=== PATIENT | female | born 1995 | race African-American/Black ===

== ENCOUNTER 2017-04-18 04:06 | Emergency (ER) | payer OTHER ==
[~2017-04-18] VITALS: Ht 167.6 cm; Wt 70.0 kg
[~2017-04-18 04:06] MED LIST: HYDR-3533 PO; IBUP-232 PO; PENVK500 PO; Z.0.BCPILL PO
[2017-04-18 04:08] VITALS: BP 141/78; PULSE 90; RESP 16; TEMP 98.3; O2SAT 100
[2017-04-18] MEDS ORDERED: SODIUM CHLORIDE 0.9% FLUSH 10 ML FLUSH IV FLUSH PRN (04:30)
--- NOTE | 2017-04-18 04:32 | PD ---
HPI Chief Complaint: Abdominal Pain Time Seen by Provider: 04:28 Travel History International Travel<30 days: No Contact w/Intl Traveler<30days: No Traveled to known affect area: No History of Present Illness HPI 21 year-old female presents to the emergency department for complaint of 2 weeks of right-sided abdominal pain. Patient is unable to identify exacerbating or alleviating factors. Patient's had nausea without vomiting. Patient denies fever or chills. Patient's had decreased appetite. Patient denies any injury or fall. No chest pain or shortness of breath. No recent respiratory illness or fever. Patient's had some intermittent dysuria and some intermittent diarrhea. No vaginal discharge or vaginal bleeding. Patient denies . Patient is taking control pills. Last period was 2 weeks ago and normal for her. Patient has tried ibuprofen without significant relief of symptoms. Patient is otherwise unable to identify exacerbating or alleviating factors. No prior surgeries. PFSH Past Medical History Narrative Medical control pills no tobacco use nursing notes reviewed Diminished Hearing: No Tetanus Vaccination: Unknown ?: Not : 0 Past Surgical History Surgical History: No Previous Surgery Social History Alcohol Use: No Tobacco Use: No Substance Use: No Allergies-Medications (Allergen,Severity, Reaction): Coded Allergies: No Known Allergies (Unverified , 05/27/16) Reported Meds & Prescriptions Reported Meds & Active Scripts Active Lortab 5 mg/325 mg (Hydrocodone/Acetaminophen 5 mg/325 mg) 1 Tab 1 Tab PO Q6H PRN Motrin (Ibuprofen) 600 Mg Tab 600 Mg PO Q6HR PRN Penicillin V Potassium 500 Mg Tab 500 Mg PO QID 7 Days Reported Control Pills (Miscellaneous Medication) Tab 1 Tab PO DAILY Review of Systems Except as stated in HPI: all other systems reviewed are Neg Physical Exam Narrative GENERAL: Well-developed well-nourished female in no acute distress no respiratory distress SKIN: Warm and dry. HEAD: Normocephalic. EYES: No scleral icterus. No injection or drainage. NECK: Supple, trachea midline. No JVD or lymphadenopathy. CARDIOVASCULAR: Regular rate and rhythm without murmurs, gallops, or rubs. RESPIRATORY: Breath sounds equal bilaterally. No accessory muscle use. GASTROINTESTINAL: Abdomen soft, mild suprapubic tenderness no guarding or rebound, nondistended. MUSCULOSKELETAL: No cyanosis, or edema. BACK: Nontender without obvious deformity. No CVA tenderness. Data Data Last Documented VS Vital Signs Date Time Temp Pulse Resp B/P (MAP) Pulse Ox O2 Delivery O2 Flow Rate FiO2 04/18/17 04:08 98.3 90 16 141/78 (99) 100 Room Air Orders Orders Complete Blood Count With Diff (04/18/17 04:28) Comprehensive Metabolic Panel (04/18/17 04:28) Lipase (04/18/17 04:28) Urinalysis - C+S If Indicated (04/18/17 04:28) Iv Access Insert/Monitor (04/18/17 04:28) Ecg Monitoring (04/18/17 04:28) Oximetry (04/18/17 04:28) Sodium Chloride 0.9% Flush (Ns Flush) (04/18/17 04:30) Ed Urine Pregnancytest Poc (04/18/17 04:28) Ketorolac Inj (Toradol Inj) (04/18/17 05:45) Ct Abd/Pel W/O Iv Contrast (04/18/17 ) Labs Laboratory Tests Test 04/18/17 04:45 White Blood Count 8.1 TH/MM3 Red Blood Count 4.50 MIL/MM3 Hemoglobin 12.9 GM/DL Hematocrit 39.3 % Mean Corpuscular Volume 87.4 FL Mean Corpuscular Hemoglobin 28.7 PG Mean Corpuscular Hemoglobin Concent 32.8 % Red Cell Distribution Width 14.3 % Platelet Count 283 TH/MM3 Mean Platelet Volume 7.8 FL Neutrophils (%) (Auto) 56.2 % Lymphocytes (%) (Auto) 36.5 % Monocytes (%) (Auto) 4.9 % Eosinophils (%) (Auto) 1.7 % Basophils (%) (Auto) 0.7 % Neutrophils # (Auto) 4.6 TH/MM3 Lymphocytes # (Auto) 3.0 TH/MM3 Monocytes # (Auto) 0.4 TH/MM3 Eosinophils # (Auto) 0.1 TH/MM3 Basophils # (Auto) 0.1 TH/MM3 CBC Comment DIFF FINAL Differential Comment Urine Color YELLOW Urine Turbidity CLEAR Urine pH 6.0 Urine Specific [place] 1.020 Urine Protein NEG mg/dL Urine Glucose (UA) NEG mg/dL Urine Ketones NEG mg/dL Urine Occult Blood NEG Urine Nitrite NEG Urine Bilirubin NEG Urine Urobilinogen LESS THAN 2.0 MG/DL Urine Leukocyte Esterase NEG Urine RBC LESS THAN 1 /hpf Urine WBC LESS THAN 1 /hpf Urine Mucus FEW /lpf Microscopic Urinalysis Comment CULT NOT INDICATED Blood Urea Nitrogen 11 MG/DL Creatinine 0.81 MG/DL Random Glucose 78 MG/DL Total Protein 7.9 GM/DL Albumin 3.3 GM/DL Calcium Level 9.0 MG/DL Alkaline Phosphatase 74 U/L Aspartate Amino Transf (AST/SGOT) 14 U/L Alanine Aminotransferase (ALT/SGPT) 16 U/L Total Bilirubin 0.1 MG/DL Sodium Level 137 MEQ/L Potassium Level 3.9 MEQ/L Chloride Level 106 MEQ/L Carbon Dioxide Level 24.4 MEQ/L Anion Gap 7 MEQ/L Estimat Glomerular Filtration Rate 110 ML/MIN Lipase 123 U/L MDM Medical Decision Making Medical Screen Exam Complete: Yes Emergency Medical Condition: Yes Medical Record Reviewed: Yes Interpretation(s) cbc grossly values are within normal range [id number] hCG negative Urinalysis within normal limits Metabolic panel: Values in normal range CBC & BMP Diagram 04/18/17 04:45 Total Protein 7.9, Albumin 3.3 L, Calcium Level 9.0, Alkaline Phosphatase 74, Aspartate Amino Transf (AST/SGOT) 14 L, Alanine Aminotransferase (ALT/SGPT) 16, Total Bilirubin 0.1 L Vital Signs Date Time Temp Pulse Resp B/P (MAP) Pulse Ox O2 Delivery O2 Flow Rate FiO2 04/18/17 04:08 98.3 90 16 141/78 (99) 100 Room Air Last Impressions Abdomen/Pelvis CT 04/18/17 0000 Signed Impressions: Service Date/Time: March 05:51 - CONCLUSION: 1. No acute findings. Small follicular cysts in the ovaries. Specifically no renal calculi or obstructive uropathy. Lance Burns MD Differential Diagnosis Abdominal pain, gastritis, pancreatitis, biliary colic, cholecystitis, appendicitis, ovarian cyst pain, , UTI, renal colic Narrative Course IV access obtained specimens collected and sent for resulting [id number] hCG test ordered Diagnosis Primary Impression: Abdominal pain Additional Impressions: Mittelschmerz phenomenon Ovarian follicular cyst Referrals: Enforcement Safety Officer call for appointment Primary Care Physician as needed Patient Instructions: General Instructions Additional Instructions: Increase fluid hydration Follow-up with primary care provider/ap operator Take ibuprofen 600 mg as often as every 6 hours as needed for pain associated with inflammation or may use this for fever 100.4F or greater Take acetaminophen/Tylenol as often as every 4-6 hours as needed for fever 100.4 F or greater or for minor pain Return to the emergency department for any concerns or change in condition Disposition: 01 DISCHARGE HOME Condition: Stable Kandice Ariza MD Apr 18, 2017 04:32
[2017-04-18 04:52] LABS: AUTOMATED NEUTROPHIL # 4.6 TH/MM3 (1.8-7.7); BASOPHIL # 0.1 TH/MM3 (0-0.2); BASOPHIL % 0.7 % (0.0-2.0); EOSINOPHIL # 0.1 TH/MM3 (0-0.4); EOSINOPHIL % 1.7 % (0.0-4.0); HEMATOCRIT 39.3 % (35.0-46.0); HEMO FLAGS DIFF FINAL; LYMPH % 36.5 % (9.0-44.0); MEAN CELL VOLUME 87.4 FL (80.0-100.0); MEAN CORPUSCULAR HEMOGLOBIN 28.7 PG (27.0-34.0); MEAN CORPUSCULAR HGB CONC 32.8 % (32.0-36.0); MONO % 4.9 % (0.0-8.0); NEUT % 56.2 % (16.0-70.0); PLATELET COUNT 283 TH/MM3 (150-450); RED CELL DISTRIBUTION WIDTH 14.3 % (11.6-17.2); WHITE BLOOD COUNT 8.1 TH/MM3 (4.0-11.0)
[2017-04-18 05:02] LABS: BLOOD, URINE NEG (NEG); COMMENT (UR) CULT NOT INDICATED; CULTURE IF INDICATED CULT NOT INDICATED; GLUCOSE,URINE NEG (NEG); KETONE, URINE NEG (NEG); MUCUS URINE FEW /lpf (OCC); NITRITE,URINE NEG (NEG); URINE COLOR YELLOW (YELLW/STRAW)
[2017-04-18 05:20] LABS: ANION GAP 7 MEQ/L (5-15); AST (GOT) 14 U/L (16-38); BICARBONATE 24.4 MEQ/L (21.0-32.0); BLOOD UREA NITROGEN 11 MG/DL (7-18); CHLORIDE 106 MEQ/L (98-107); GLOMERULAR FILTRATION RATE 110 ML/MIN (>89); POTASSIUM 3.9 MEQ/L (3.5-5.1); SODIUM (NA) 137 MEQ/L (136-145)
[2017-04-18 05:30] LABS: ALKALINE PHOSPHATASE 74 U/L (45-117); ALT (GPT) 16 U/L (9-42); TOTAL BILIRUBIN ADULT 0.1 MG/DL (0.2-1.0)
[2017-04-18] MEDS ORDERED: KETOROLAC TROMETHAMINE 30 MG/ML (IVP) VIAL IV PUSH ONE (05:45)
--- NOTE | 2017-04-18 06:04 | RADRPT ---
EXAM DATE/TIME: 04/18/2017 05:51 [facility] COMPARISON: No previous studies available for comparison. INDICATIONS : Right flank pain for two weeks. Evaluate for renal stone ORAL CONTRAST: No oral contrast ingested. RADIATION DOSE: 6.05 CTDIvol (mGy) MEDICAL HISTORY : None SURGICAL HISTORY : None. ENCOUNTER: Initial ACUITY: 2 weeks PAIN SCALE: 3/10 LOCATION: Right flank TECHNIQUE: Volumetric scanning of the abdomen and pelvis was performed. Using automated exposure control and ad justment of the mA and/or kV according to patient size, radiation dose was kept as low as reasonably achievable to obtain optimal diagnostic quality images. DICOM format image data is available electro nically for review and comparison. FINDINGS: Lung bases are clear. No acute findings in the liver, spleen, adrenals, kidneys or pancreas. No renal calculi or obstructive uropathy. There is trace free fluid in the pelvis. Small follicular cysts in the ovaries. No acute bony abnorma lities. CONCLUSION: 1. No acute findings. Small follicular cysts in the ovaries. Specifically no renal calculi or obstruc tive uropathy. Lance Burns MD on April 18, 2017 at 5:57 Board Certified Radiologist. This report was verified electronically.
== END 2017-04-18 06:41 | disposition home or self-care (01) ==
LOC: NEPC 04:06
DX: R10.9 Unspecified abdominal pain (principal); N94.0 Mittelschmerz; N83.01 Follicular cyst of right ovary; R30.0 Dysuria; R19.7 Diarrhea, unspecified; Z79.899 Other long term (current) drug therapy
CPT/HCPCS: 74176; 80053; 81001; 83690; 84703; 85025; 96374; 99285; J1885

== ENCOUNTER 2017-12-18 23:15 | Emergency (ER) | payer OTHER ==
[~2017-12-18] VITALS: Ht 170.2 cm; Wt 75.0 kg
[2017-12-18 23:32] VITALS: BP 128/65; PULSE 87; RESP 14; TEMP 98.2; O2SAT 99
== END 2017-12-19 00:10 | disposition left against medical advice (07) ==
LOC: NED 23:15
DX: Z53.21 Procedure and treatment not carried out due to patient leaving prior to being seen by health care provider (principal)
CPT/HCPCS: 99281

== ENCOUNTER 2018-01-26 17:00 | Emergency (ER) | payer OTHER ==
[~2018-01-26] VITALS: Ht 170.2 cm; Wt 75.0 kg
[2018-01-26 17:18] VITALS: BP 141/82; PULSE 98; RESP 16; TEMP 99.2; O2SAT 100
--- NOTE | 2018-01-26 18:12 | PD ---
HPI Chief Complaint: Abdominal Pain Time Seen by Provider: 18:12 Travel History International Travel<30 days: No Contact w/Intl Traveler<30days: No Traveled to known affect area: No History of Present Illness HPI 22-year-old female came to the emergency room with history of lower abdominal pain. No history of nausea vomiting. She says she has been constipated and has not had a bowel movement in past 2 days. Her last. Was 6 weeks ago and upon asking she says there is a chance she could be . She has not checked a home test. No history of spotting or cramping. No history of vaginal discharge. Vital signs are stable. She appeared otherwise in no acute distress. Pain is nonradiating. No aggravating or relieving factors identified. It is a dull ache that is constantly there. No history of fever or chills. No history of dysuria. No history of hematuria. PFSH Past Medical History Narrative Medical List of her past medical, surgical, social and family history is reviewed from the nursing note. Diminished Hearing: No : 0 Ovarian Cysts: Yes Social History Alcohol Use: No Tobacco Use: No Substance Use: No Allergies-Medications (Allergen,Severity, Reaction): Coded Allergies: No Known Allergies (Unverified Adverse Reaction, Unknown, 01/26/18) Comments No known drug allergies. Reported Meds & Prescriptions Reported Meds & Active Scripts Active Miralax Powder (Polyethylene Glycol 3350 Powder) 17 Gm Powd 17 Gm PO DAILY Mix and dissolve one measuring cap-ful (17 grams) in water or juice. Lortab 5 mg/325 mg (Hydrocodone/Acetaminophen 5 mg/325 mg) 1 Tab 1 Tab PO Q6H PRN Motrin (Ibuprofen) 600 Mg Tab 600 Mg PO Q6HR PRN Penicillin V Potassium 500 Mg Tab 500 Mg PO QID 7 Days Reported Control Pills (Miscellaneous Medication) Tab 1 Tab PO DAILY Narrative Medication List of her home medications reviewed from the nursing note Review of Systems Except as stated in HPI: all other systems reviewed are Neg Gastrointestinal: Positive: Abdominal Pain, Constipation Physical Exam Narrative GENERAL: Awake, alert, no obvious distress SKIN: Focused skin assessment warm/dry. HEAD: Atraumatic. Normocephalic. EYES: Pupils equal and round. No scleral icterus. No injection or drainage. ENT: No nasal bleeding or discharge. Mucous membranes pink and moist. NECK: Trachea midline. No JVD. CARDIOVASCULAR: Regular rate and rhythm. No murmur appreciated. RESPIRATORY: No accessory muscle use. Clear to auscultation. Breath sounds equal bilaterally. GASTROINTESTINAL: Abdomen soft, non-tender, nondistended. Hepatic and splenic margins not palpable. MUSCULOSKELETAL: No obvious deformities. No clubbing. No cyanosis. No edema. NEUROLOGICAL: Awake and alert. No obvious cranial nerve deficits. Motor grossly within normal limits. Normal speech. PSYCHIATRIC: Appropriate mood and affect; insight and judgment normal. Data Data Last Documented VS Vital Signs Date Time Temp Pulse Resp B/P (MAP) Pulse Ox O2 Delivery O2 Flow Rate FiO2 01/26/18 17:18 99.2 98 16 141/82 (101) 100 Orders Orders Urinalysis - C+S If Indicated (01/26/18 18:29) Ed Urine Pregnancytest Poc (01/26/18 18:29) Ed Discharge Order (01/26/18 19:18) Labs Laboratory Tests Test 01/26/18 18:43 Urine Color YELLOW Urine Turbidity CLEAR Urine pH 6.5 Urine Specific [place] 1.025 Urine Protein NEG mg/dL Urine Glucose (UA) NEG mg/dL Urine Ketones NEG mg/dL Urine Occult Blood TRACE Urine Nitrite NEG Urine Bilirubin NEG Urine Urobilinogen LESS THAN 2.0 MG/DL Urine Leukocyte Esterase MOD Urine RBC 1 /hpf Urine WBC 6 /hpf Urine Squamous Epithelial Cells 2 /hpf Microscopic Urinalysis Comment CULT NOT INDICATED MDM Medical Decision Making Medical Screen Exam Complete: Yes Emergency Medical Condition: Yes Medical Record Reviewed: Yes Differential Diagnosis UTI, early , pelvic pain NOS, constipation Narrative Course 6:42 PM awaiting for UA and urine . If these are unremarkable patient will be discharged home on laxative. 7:18 PM her and UA both are negative. I will discharge her home Procedures EKG Prior to Arrival: No Diagnosis Primary Impression: Constipation Qualified Codes: K59.00 - Constipation, unspecified Referrals: Primary Care Physician Additional Instructions: Follow-up with primary care. Drink lots of fluid. High-fiber diet. Take the medication as per the prescription direction Med/Other Pt SpecificInfo: Prescription(s) given Scripts Polyethylene Glycol 3350 Powder (Miralax Powder) 17 Gm Powd 17 GM PO DAILY for Constipation, #1 CAN 0 Refills Mix and dissolve one measuring cap-ful (17 grams) in water or juice. Prov: Saleem Mehta MD 01/26/18 Disposition: 01 DISCHARGE HOME Condition: Stable Saleem Mehta MD Jan 26, 2018 18:12
[2018-01-26 19:14] LABS: BILIRUBIN, URINE NEG (NEG); BLOOD, URINE TRACE (NEG); GLUCOSE,URINE NEG (NEG); KETONE, URINE NEG (NEG); NITRITE,URINE NEG (NEG); PH, URINE 6.5 (5.0-8.5); SQUAMOUS EPITHELIAL CELL URINE 2 /hpf (0-5); URINE COLOR YELLOW (YELLW/STRAW); URINE LEUKOCYTE ESTERASE MOD (NEG)
[2018-01-26] MEDS ORDERED: MIRA3350 PO (19:20)
== END 2018-01-26 19:42 | disposition home or self-care (01) ==
LOC: NEPD 17:00
DX: K59.00 Constipation, unspecified (principal); Z79.899 Other long term (current) drug therapy; Z79.3 Long term (current) use of hormonal contraceptives
CPT/HCPCS: 81001; 84703; 99283